=== PATIENT | male | born 1995 | race Caucasian/White ===

== ENCOUNTER → 2020-06-10 19:00 | Outpatient (CLI) | payer MEDICAID, SELFPAY | DX: G47.00 Insomnia, unspecified (principal) | CPT/HCPCS: 95810 ==

== ENCOUNTER 2020-07-08 08:32 | Outpatient (RCR) | payer MEDICAID, SELFPAY | END 2020-07-09 23:59 | LOC: EMPH 08:32 | PROVIDERS: Visit Provider Family Medicine Geriatric Medicine | DX: Z03.818 Encounter for observation for suspected exposure to other biological agents ruled out (principal) | CPT/HCPCS: 87426 ==

== ENCOUNTER 2020-07-29 14:23 | Outpatient (RCR) | payer MEDICAID, SELFPAY ==
[2020-07-29 16:35] LABS: Probe Check PASS; Specimen Processing Control PASS
== END 2020-08-08 23:59 ==
LOC: EMPH 14:23
PROVIDERS: Visit Provider Family Medicine Geriatric Medicine
DX: Z03.818 Encounter for observation for suspected exposure to other biological agents ruled out (principal)
CPT/HCPCS: 87426; 87635; U0002

== ENCOUNTER 2020-08-16 09:59 | Outpatient (RCR) | payer MEDICAID, SELFPAY | END 2020-09-08 23:59 | LOC: EMPH 09:59 | PROVIDERS: Referring Provider Family Medicine Geriatric Medicine; Visit Provider Family Medicine Geriatric Medicine | DX: Z03.818 Encounter for observation for suspected exposure to other biological agents ruled out (principal) | CPT/HCPCS: 87426 ==

== ENCOUNTER 2020-10-04 11:36 | Outpatient (RCR) | payer MEDICAID, SELFPAY | END 2020-10-09 23:59 | LOC: EMPH 11:36 | PROVIDERS: Referring Provider Family Medicine Geriatric Medicine; Visit Provider Family Medicine Geriatric Medicine | DX: Z03.818 Encounter for observation for suspected exposure to other biological agents ruled out (principal) | CPT/HCPCS: 87426 ==

== ENCOUNTER 2020-12-23 11:30 | Outpatient (RCR) | payer MEDICAID, SELFPAY | END 2021-01-06 23:59 | LOC: EMPH 11:30 | PROVIDERS: Referring Provider Family Medicine Geriatric Medicine; Visit Provider Family Medicine Geriatric Medicine | DX: Z03.818 Encounter for observation for suspected exposure to other biological agents ruled out (principal) | CPT/HCPCS: 87426 ==

== ENCOUNTER 2021-05-04 11:55 | Outpatient (RCR) | payer MEDICAID, SELFPAY | END 2021-05-09 23:59 | LOC: EMPH 11:55 | PROVIDERS: Referring Provider Family Medicine Geriatric Medicine; Visit Provider Family Medicine Geriatric Medicine | DX: Z03.818 Encounter for observation for suspected exposure to other biological agents ruled out (principal) | CPT/HCPCS: 87426 ==

== ENCOUNTER 2021-09-07 07:55 | Outpatient (RCR) | payer MEDICAID, SELFPAY | END 2021-09-08 23:59 | LOC: EMPH 07:55 | PROVIDERS: PCP Internal Medicine; Referring Provider Family Medicine Geriatric Medicine; Visit Provider Family Medicine Geriatric Medicine | DX: Z03.818 Encounter for observation for suspected exposure to other biological agents ruled out (principal) | CPT/HCPCS: 87635; U0003; U0005 ==

== ENCOUNTER 2024-04-25 07:22 | Outpatient (REF) | payer OTHER, SELFPAY ==
[2024-04-25 07:23] VITALS: BP 149/89; PULSE 79; RESP 19; TEMP 36.2; O2SAT 100; BMI 31.5
--- NOTE | 2024-04-25 07:50 | EX.ED.DYSGE1 ---
HPI History of Present Illness Chief Complaint: Occup Expose Informant: patient Narrative Narrative: Patient is a 29-year-old male presenting with occupational needlestick exposure. Patient was driving an [place] with the patient jerked and he accidentally poked his left index finger. He was wearing gloves. It did bleed. He washed his hands immediately. Came in for postexposure evaluation/protocol. No other complaints or concerns at this time. Denies any known history of any blood-borne pathogens including HIV or hepatitis. [facility], [facility] Medical History Elevated liver enzymes Hypophosphatemia Elevated serum creatinine Preventative health care History of fracture of arm ADD (attention deficit disorder) Home Medications ?Medication ?Instructions ?Recorded ?Last Taken ?Type multivitamin 1 tab PO DAILY 07/25/21 Unknown History omega-3 fatty acids 1,000 mg 1,000 mg PO DAILY 07/25/21 Unknown History capsule (Fish Oil Concentrate) Allergy/AdvReac Type Severity Reaction Status Date / Time No Known Allergies Allergy Verified 05/29/23 09:48 Family History Father Cancer prostate Depression Hypertension Respiratory abnormality CVA (cerebral vascular accident) Diabetes Mother Depression Myocardial infarction, Onset Age: 60 Hypertension Hyperlipemia Social History adopted: No household members: none current occupational status: employed current occupation: [employer] pets and animals: Yes pets and animals: dog(s) Smoking Status: Never smoker alcohol intake: never substance use type: does not use caffeine: Yes (3) Type: coffee what type of physical activity do you participate in: weight training frequency: 5-6 times per week seatbelt use: always do you feel safe at home: Yes ROS ROS ED Constitutional Constitutional ED: Denies chills or fever(s) Gastrointestinal Gastrointestinal: Denies nausea Musculoskeletal Musculoskeletal: Denies arthralgias or myalgias Integumentary Denies Abrasions Neurologic Neurologic: Denies paresthesias or weakness EXAM Physical Exam Const Vital Signs: 04/25/24 07:23 Temperature 97.2 F L Temperature Source Temporal Pulse Rate 79 Respiratory Rate 19 H Blood Pressure 149/89 H Blood Pressure Mean 109 Pulse Ox 100 Oxygen Delivery Method Room Air Positive well nourished and well developed General Appearance ED: well developed HEENT Reports moist mucous membranes Neck supple Chest Wall inspection of chest normal Resp normal respiratory effort and clear to auscultation bilaterally Cardio regular rate and regular rhythm Extremity normal to inspection General Extremety ED: Negative for edema or tenderness General Extremity: Negative for edema Neuro oriented x3 Sensorium / Orientation: alert Motor Exam: Negative for general weakness Psych mental status grossly normal Skin Skin Narrative: There is a tiny nonbleeding pinpoint poke on the pad of the left index finger consistent with where his needlestick was. MDM MDM MDM Narrative Medical decision making narrative: Patient evaluated for postexposure testing after needlestick. No other complaints at this time. Discussed with patient that injury is low risk for transmission of blood-borne pathogens. Is offered HIV postexposure prophylaxis but he declines. Will be given a protocol for follow-up for needle exposure. He verbalized agreement nursing of this plan. Discharge Plan Triage Chief Complaint: Occup Expose ED Provider: Fatimah Bowling Dx/Rx/DC Orders Clinical Impression: Needle stick injury of finger of left hand, Occupational exposure in workplace Instructions: ED NEEDLE STICK Health Care Worker Prescriptions: No Action omega-3 fatty acids [Fish Oil Concentrate] 1,000 mg capsule 1,000 mg PO DAILY multivitamin Tablet 1 tab PO DAILY Primary Care Provider: Armida Aaron Referrals: Armida Aaron MD [Primary Care Provider] - Print Language: Senegalese Disposition Disposition: Home, Self Care
[2024-04-25 09:25] LABS: HIV - WCH Non-Reactive (Nonreactive); Hepatitis B Surface Antibody Non-Reactive; Hepatitis B Surface Antigen Non-Reactive (Nonreactive); Hepatitis C Antibody Non-Reactive (Nonreactive)
== END 2024-04-25 08:22 | disposition home or self-care (01) ==
LOC: ED 07:22
PROVIDERS: PCP Internal Medicine; Visit Provider Emergency Medicine
DX: S61.239A Puncture wound without foreign body of unspecified finger without damage to nail, initial encounter (principal); W46.0XXA Contact with hypodermic needle, initial encounter; Y93.89 Activity, other specified; Y99.0 Civilian activity done for income or pay; Y92.89 Other specified places as the place of occurrence of the external cause
CPT/HCPCS: 86703; 86706; 86803; 87340; A4216

== ENCOUNTER → 2025-06-22 | Outpatient (CLI) | payer OTHER, SELFPAY ==
[2025-06-22 16:47] LABS: PSA,Total - Annual Screen 0.65 ng/mL (0.02-4.00)
== END | disposition home or self-care (01) ==
LOC: LAB 15:12
PROVIDERS: PCP Internal Medicine; Referring Provider Nurse Practitioner Family; Visit Provider Nurse Practitioner Family
DX: Z12.5 Encounter for screening for malignant neoplasm of prostate (principal); Z80.42 Family history of malignant neoplasm of prostate
CPT/HCPCS: 36415; 84153; G0103